=== PATIENT | male | born 2005 | race Caucasian/White ===

== ENCOUNTER 2023-10-24 07:04 | Emergency (ER) | payer SELFPAY ==
[~2023-10-24] VITALS: Ht 180.3 cm; Wt 76.5 kg
[2023-10-24 07:07] VITALS: BP 115/73; PULSE 72; RESP 18; TEMP 97.8; O2SAT 100
== END 2023-10-24 09:27 | disposition left against medical advice (07) ==
LOC: ER 07:56
DX: R11.2 Nausea with vomiting, unspecified (principal)
CPT/HCPCS: 99281